=== PATIENT | male | born 1970 | race Asian ===

== ENCOUNTER 2025-01-07 22:44 | Emergency (ER) | payer OTHER ==
[~2025-01-07] VITALS: Ht 165.1 cm; Wt 60.0 kg
[2025-01-07 22:56] VITALS: BP 151/95; PULSE 101; RESP 16; TEMP 36.8; O2SAT 100
[2025-01-08] MEDS: ACETAMINOPHEN 325MG TABLET PO ONE (01:08)
[2025-01-08] MEDS: TETANUS, DIPHTHERIA, PERTUSSIS VAC/PF 0.5ML (>10YR OLD) IM ONE (01:09)
[2025-01-08] MEDS ORDERED: IBUP-1455 MT (01:11)
[2025-01-08] MEDS ORDERED: BO1 TP (01:11)
== END 2025-01-08 01:47 | disposition home or self-care (01) ==
LOC: ER 22:44
DX: S01.511A Laceration without foreign body of lip, initial encounter (principal); S50.01XA Contusion of right elbow, initial encounter; X58.XXXA Exposure to other specified factors, initial encounter; Y93.89 Activity, other specified; Y92.89 Other specified places as the place of occurrence of the external cause; Y99.8 Other external cause status
CPT/HCPCS: 12011; 99285; 70450; 70486; 72125; 90715; 90471; Z7610

== ENCOUNTER 2025-01-14 11:02 | Emergency (ER) | payer OTHER ==
[~2025-01-14] VITALS: Ht 172.7 cm; Wt 71.0 kg
[~2025-01-14 11:02] MED LIST: BO1 TP; IBUP-1455 MT
[2025-01-14 11:18] VITALS: O2SAT 100
[2025-01-14 13:06] VITALS: BP 112/75; PULSE 82; RESP 15; TEMP 37.1; O2SAT 100
== END 2025-01-14 13:07 | disposition home or self-care (01) ==
LOC: ER 11:02
DX: S01.511D Laceration without foreign body of lip, subsequent encounter (principal); X58.XXXD Exposure to other specified factors, subsequent encounter
CPT/HCPCS: 99282